=== PATIENT | female | born 1995 | race Caucasian/White ===

== ENCOUNTER 2017-08-14 10:16 | Inpatient (IN) | payer OTHER ==
[2017-08-14] VITALS (18 sets, daily range): BP systolic 108–138; BP diastolic 58–78
[~2017-08-14] VITALS: Ht 160 cm; Wt 69.8 kg
[~2017-08-14 10:16] MED LIST: ALBUTEROL SULF8.5 GM IH; AMITRIPTYLINE H10 MG PO; DULERA 100 MCG/13 GM IH; PROVENTIL,2.5 MG/0.5 IH; ZOFRAN4 MG PO; bcp
[2017-08-14] MEDS ORDERED: PRENATAL TABLE1 EAC3 PO (11:05)
[2017-08-14 11:54] LABS: EOSINOPHIL (%) 0 % (0-5); HEMATOCRIT 34.1 % (36.0-46.0); IMMATURE GRANULOCYTE (%) 0.6 % (0.0-0.7); IMMATURE GRANULOCYTE COUNT 0.1 K/uL; INSTRUMENT ABS NEUTROPHIL CT 12.7 K/uL; LYMPHOCYTE COUNT 0.9 K/uL (1.0-2.8); MCH 28.7 PG (29.0-34.0); MCHC 32.6 G/DL (30.0-36.0); MCV 88.1 FL (83-99); MEAN PLAT.VOLUME 11.8 uM^3 (9.5-12.4); MONOCYTE (%) 3.3 % (3-12); MONOCYTE COUNT 0.5 K/uL (0-0.8); NEUTROPHIL (%) 89.7 % (45-76); NEUTROPHIL COUNT 12.7 K/uL (1.8-6.4); PLATELET COUNT 191 K/uL (156-360); RBC DIS.WIDTH-CV 13.6 % (11.8-14.6); RBC DIS.WIDTH-SD 43.8 % (39-53); RED BLOOD COUNT 3.87 M/uL (3.80-5.20); WHITE BLOOD COUNT 14.1 K/uL (4.1-10.2)
[2017-08-14 16:45] LABS: AMPHETAMINE NEGATIVE (500 ng/mL); BENZODIAZEPINES NEGATIVE (150 ng/mL); COCAINE NEGATIVE (150 ng/mL); METHAMPHETAMINE NEGATIVE (500 ng/mL); OPIATES (MORPHINE) NEGATIVE (100 ng/mL); PHENCYCLIDINE NEGATIVE (25 ng/mL); THC CANNABINOIDS NEGATIVE (50 ng/mL)
[2017-08-14 16:46] LABS: BARBITURATES NEGATIVE (200 ng/mL); INTERNAL CONTROLS VALID? YES; METHADONE NEGATIVE (200 ng/mL); OXYCODONE NEGATIVE (100 ng/mL); PROPOXYPHENE NEGATIVE (300 ng/mL); TRICYCLIC ANTIDEPRESSANTS NEGATIVE (300 ng/mL)
[2017-08-15] VITALS (7 sets, daily range): BP systolic 105–123; BP diastolic 54–70
[2017-08-15 07:49] LABS: EOSINOPHIL (%) 0 % (0-5); HEMATOCRIT 30.5 % (36.0-46.0); IMMATURE GRANULOCYTE (%) 0.6 % (0.0-0.7); IMMATURE GRANULOCYTE COUNT 0.1 K/uL; INSTRUMENT ABS NEUTROPHIL CT 15.1 K/uL; LYMPHOCYTE COUNT 1.5 K/uL (1.0-2.8); MCH 29.6 PG (29.0-34.0); MCHC 32.8 G/DL (30.0-36.0); MCV 90.2 FL (83-99); MEAN PLAT.VOLUME 11.8 uM^3 (9.5-12.4); MONOCYTE (%) 6.8 % (3-12); MONOCYTE COUNT 1.2 K/uL (0-0.8); NEUTROPHIL (%) 84.1 % (45-76); NEUTROPHIL COUNT 15.1 K/uL (1.8-6.4); PLATELET COUNT 180 K/uL (156-360); RBC DIS.WIDTH-CV 13.8 % (11.8-14.6); RBC DIS.WIDTH-SD 45.1 % (39-53); RED BLOOD COUNT 3.38 M/uL (3.80-5.20)
[2017-08-16 07:45] VITALS: BP 116/66
[2017-08-16 11:20] VITALS: BP 112/75
[2017-08-16 14:59] VITALS: BP 125/58
[2017-08-16 23:19] VITALS: BP 116/65
[2017-08-17 08:01] VITALS: BP 121/68
[2017-08-17] MEDS ORDERED: ENDOCET 5-3251 EACH PO (09:38)
[2017-08-17] MEDS ORDERED: IBUPROFEN800 MG PO (09:38)
[2017-08-17] MEDS ORDERED: DOCUSATE SODIU100 MG PO (09:38)
[2017-08-17 15:43] VITALS: BP 131/78
[2017-08-18] MEDS ORDERED: PUMP IN STYLE1 EACH MC (08:00)
[2017-08-18 09:19] VITALS: BP 128/70
[2017-08-19] MEDS ORDERED: KEFLEX500 MG PO (01:12)
== END 2017-08-18 12:40 | disposition home or self-care (01) | DRG 765 ==
LOC: LDRP-OP 10:16 → 2WEST 10:17 → LDRP-OP 21:59 → 2WEST 08-18 12:40 → LDRP-OP 09-12 13:48
PROVIDERS: Advanced Practice Midwife; Obstetrics & Gynecology Obstetrics
DX: O32.1XX0 Maternal care for breech presentation, not applicable or unspecified (principal); O48.0 Post-term pregnancy; O99.02 Anemia complicating childbirth; D62 Acute posthemorrhagic anemia; Z3A.40 40 weeks gestation of pregnancy; Z37.0 Single live birth; Z87.891 Personal history of nicotine dependence; Z23 Encounter for immunization
CPT/HCPCS: 76815; 85025; 86850; 86900; 86901; 90686; C1755; J0690; J1050; J1100; J1885; J2175; J2274; J2405; J3010; J7050; J7120

== ENCOUNTER 2017-08-18 20:44 | Emergency (ER) | payer OTHER ==
[~2017-08-18] VITALS: Ht 160 cm; Wt 70.4 kg
[~2017-08-18 20:44] MED LIST changes: +DOCUSATE SODIU100 MG PO; +ENDOCET 5-3251 EACH PO; +IBUPROFEN800 MG PO; +PRENATAL TABLE1 EAC3 PO; +PUMP IN STYLE1 EACH MC
[2017-08-18 23:21] LABS: HEMATOCRIT 30.1 % (36.0-46.0); MCH 28.5 PG (29.0-34.0); MCHC 31.6 G/DL (30.0-36.0); MCV 90.4 FL (83-99); MEAN PLAT.VOLUME 9.9 uM^3 (9.5-12.4); PLATELET COUNT 230 K/uL (156-360); RBC DIS.WIDTH-CV 13.7 % (11.8-14.6); RED BLOOD COUNT 3.33 M/uL (3.80-5.20); WHITE BLOOD COUNT 10.3 K/uL (4.1-10.2)
[2017-08-18 23:30] LABS: CHLORIDE 107 mEq/L (99-109); POTASSIUM 4.1 mEq/L (3.7-5.4); SODIUM 140 mEq/L (136-147)
[2017-08-18 23:32] LABS: GLUCOSE 81 mg/dL (70-99)
[2017-08-18 23:33] LABS: ANION GAP 10 MEQ/L (2-14)
[2017-08-18 23:34] LABS: TOTAL BILIRUBIN 0.2 mg/dL (0.0-1.0)
[2017-08-18 23:36] LABS: ALKALINE PHOSPHATASE 150 IU/L (3-129); GFR ESTIMATE (CALCULATED) > 59 mL/min/
[2017-08-18 23:37] LABS: UREA NITROGEN (BUN) 12 mg/dL (9-23)
[2017-08-18 23:47] LABS: QUANTITATIVE HCG 372.1 MIU/ML
[2017-08-19 00:05] LABS: ADD MIUA? YES; BILIRUBIN NEGATIVE; BLOOD LARGE; COLOR STRAW ((YELLOW)); GLUCOSE (STRIP) NEGATIVE; KETONES NEGATIVE; LEUKOCYTES SMALL; NITRITE NEGATIVE; PROTEIN (STRIP) NEGATIVE; SPECIFIC GRAVITY 1.009 (1.000-1.030); UROBILINOGEN 0.2 MG/DL (0.2-1.0)
[2017-08-19 00:19] LABS: RED BLOOD CELLS 20-30 /HPF (0-5)
[2017-08-19 00:20] LABS: BACTERIA 3+ /HPF; CASTS NONE SEEN /LPF; CRYSTALS NONE SEEN; EPITHELIAL CELLS 1+ /HPF; MUCUS NONE SEEN /LPF; UCUL ADDED? YES
[2017-08-19] MEDS ORDERED: KEFLEX500 MG PO (01:12)
[2017-08-19 01:19] VITALS: BP 120/70
== END 2017-08-19 01:20 | disposition home or self-care (01) ==
LOC: RME 20:44 → EME 20:44 → RME 08-19 01:20
PROVIDERS: Physician Assistant
DX: R60.0 Localized edema (principal); N39.0 Urinary tract infection, site not specified; Z98.890 Other specified postprocedural states; J45.909 Unspecified asthma, uncomplicated; Z87.891 Personal history of nicotine dependence
CPT/HCPCS: 80053; 81003; 83880; 84702; 85027; 87086; 93970; 99281; 99284